=== PATIENT | female | born 1975 | race African-American/Black ===

== ENCOUNTER 2017-01-07 11:20 | Emergency (ER) | payer MEDICAID ==
[~2017-01-07] VITALS: Ht 162.6 cm; Wt 75.0 kg
[2017-01-07] MEDS ORDERED: IPRATROPIUM/ALBUTEROL 0.5-3(2.5)MG/3ML NEB HHN ONE (12:15)
[2017-01-07 12:55] LABS: BASOPHILS % 0.5 % (0.0-2.0); EOSINOPHILS % 2.4 % (0.0-5.0); HEMATOCRIT. 44.9 % (36.0-48.0); HEMOGLOBIN. 15.2 g/dL (12.0-16.0); LYMPHOCYTES % 14.8 % (20.0-50.0); MEAN CORPUSCULAR HEMOGLOBIN 33.2 pg (28.0-32.0); MEAN CORPUSCULAR VOLUME 98.2 fL (81.0-99.0); MEAN PLATELET VOLUME 8.6 fl (7.4-10.4); MONOCYTES % 9.1 % (2.0-8.0); NEUTROPHILS % 73.2 % (40.0-76.0); PLATELET 233 x1000/uL (130-400); RED BLOOD CELL COUNT 4.57 mill/uL (4.2-5.4); RED CELL DISTRIBUTION WIDTH 14.4 % (11.6-14.6)
[2017-01-07 13:01] LABS: CARBON DIOXIDE 29 mEq/L (21-32); CHLORIDE 108 mEq/L (98-107)
[2017-01-07 14:27] LABS: *AMPHETAMINES SCREEN URINE NEGATIVE (NEGATIVE); *BARBITURATES SCREEN URINE NEGATIVE (NEGATIVE); *BENZODIAZEPINES SCREEN URINE NEGATIVE (NEGATIVE); CANNABINOID URINE SCREEN NEGATIVE (NEGATIVE); METHADONE URINE SCREEN NEGATIVE (NEGATIVE); OPIATES URINE SCREEN NEGATIVE (NEGATIVE); PHENCYCLIDINE URINE SCREEN NEGATIVE (NEGATIVE)
[2017-01-07 14:28] LABS: CLARITY URINE CLOUDY (CLEAR); COLOR URINE YELLOW (YELLOW); GLUCOSE URINE NEGATIVE (NEGATIVE); KETONES URINE NEGATIVE (NEGATIVE); LEUKOCYTE ESTERASE URINE 3+ (NEGATIVE); NITRITE URINE NEGATIVE (NEGATIVE); OCCULT BLOOD URINE 2+ (NEGATIVE); PH URINE 7.5 (4.5-8.0); PROTEIN URINE TRACE (NEGATIVE); SPECIFIC GRAVITY URINE 1.009 (1.005-1.030)
[2017-01-07 14:29] LABS: *COCAINE SCREEN URINE PRESUMTIVE POSITIVE (NEGATIVE)
[2017-01-07 14:59] VITALS: BP 114/84
[2017-01-07] MEDS ORDERED: SULFAMETHOXAZOLE/TRIMETHOPRIM 800/160MG TABLET PO ONE (15:30)
== END 2017-01-07 15:49 | disposition home or self-care (01) ==
LOC: ER 12:30
DX: J45.901 Unspecified asthma with (acute) exacerbation (principal); N39.0 Urinary tract infection, site not specified; E87.6 Hypokalemia; E88.09 Other disorders of plasma-protein metabolism, not elsewhere classified; E46 Unspecified protein-calorie malnutrition; F14.10 Cocaine abuse, uncomplicated; N17.0 Acute kidney failure with tubular necrosis; R73.9 Hyperglycemia, unspecified; R80.9 Proteinuria, unspecified; R82.71 Bacteriuria; E87.8 Other disorders of electrolyte and fluid balance, not elsewhere classified; E83.51 Hypocalcemia; E86.0 Dehydration; J98.11 Atelectasis; Z88.0 Allergy status to penicillin
CPT/HCPCS: 36415; 71010; 80053; 80305; 81001; 85025; 94640; 99285; Z7610; J7620

== ENCOUNTER 2020-04-09 22:03 | Inpatient (IN) | payer MEDICAID, OTHER ==
[~2020-04-09] VITALS: Ht 162.6 cm; Wt 71.7 kg
[2020-04-09] MEDS ORDERED: SODIUM CHLORIDE 0.9% 1,000 ML IV ONE (22:33)
[2020-04-09] MEDS ORDERED: FOLIC ACID 1 MG, THIAMINE HCL 100 MG, MVI, ADULT NO.1 10 ML in DEXTROSE 5% WATER 1,000 ML IV ONE ×4 (22:45)
[2020-04-09] MEDS ORDERED: ASPIRIN 81MG TABLET PO ONE (22:45)
[2020-04-09 23:06] LABS: BASOPHILS % 0.7 % (0.0-2.0); HEMATOCRIT. 51.6 % (36.0-48.0); LYMPHOCYTES % 14.9 % (20.0-50.0); MEAN CORPUSCULAR HEMOGLOBIN 35.3 pg (28.0-32.0); MEAN CORPUSCULAR VOLUME 107.2 fL (81.0-99.0); MEAN PLATELET VOLUME 8.6 fl (7.4-10.4); MONOCYTES % 8.3 % (2.0-8.0); NEUTROPHILS % 76.1 % (40.0-76.0); PLATELET 141 x1000/uL (130-400); RED BLOOD CELL COUNT 4.81 mill/uL (4.2-5.4); RED CELL DISTRIBUTION WIDTH 13.9 % (11.6-14.6)
[2020-04-09 23:11] LABS: CHLORIDE 95 mEq/L (98-107)
[2020-04-09 23:15] LABS: ETHANOL BLOOD 22 mg/dL
[2020-04-09 23:25] LABS: T4 FREE 1.16 ng/dL (0.76-1.46)
[2020-04-09 23:27] LABS: PLATELET ESTIMATE NORMAL
[2020-04-09] MEDS ORDERED: DEXTROSE 50% WATER 50ML SYRINGE IV ONE (23:45)
[2020-04-10] MEDS ORDERED: FUROSEMIDE 100MG/10ML VIAL IV NR (00:33)
[2020-04-10] MEDS ORDERED: CALCIUM CHLORIDE 1GM/10ML SYR IV NR (00:45)
[2020-04-10] MEDS ORDERED: LORAZEPAM 2MG/ML CPJ IV ONE (00:45)
[2020-04-10] MEDS ORDERED: SODIUM BICARBONATE 8.4% 1 MEQ/ML 50ML SYR IV NR (00:45)
[2020-04-10] MEDS ORDERED: DILTIAZEM HCL 5MG/ML 5ML VIAL IV ONE (01:15)
[2020-04-10] MEDS ORDERED: SODIUM CHLORIDE 0.9% 1000ML BAG (SEPSIS BOLUS) IV NR (01:45)
[2020-04-10 02:27] LABS: CLARITY URINE TURBID (CLEAR); COLOR URINE ORANGE (YELLOW); KETONES URINE NEGATIVE (NEGATIVE); LEUKOCYTE ESTERASE URINE 3+ (NEGATIVE); NITRITE URINE NEGATIVE (NEGATIVE); OCCULT BLOOD URINE 3+ (NEGATIVE); PH URINE 5.5 (4.5-8.0); PROTEIN URINE 2+ (NEGATIVE); SPECIFIC GRAVITY URINE 1.013 (1.005-1.030)
[2020-04-10 02:43] LABS: *AMPHETAMINES SCREEN URINE NEGATIVE (NEGATIVE)
[2020-04-10 02:44] LABS: *BARBITURATES SCREEN URINE NEGATIVE (NEGATIVE); *BENZODIAZEPINES SCREEN URINE NEGATIVE (NEGATIVE); METHADONE URINE SCREEN NEGATIVE (NEGATIVE); OPIATES URINE SCREEN NEGATIVE (NEGATIVE)
[2020-04-10 02:45] LABS: CANNABINOID URINE SCREEN NEGATIVE (NEGATIVE); PHENCYCLIDINE URINE SCREEN NEGATIVE (NEGATIVE)
[2020-04-10 02:48] LABS: *COCAINE SCREEN URINE PRESUMTIVE POSITIVE (NEGATIVE)
[2020-04-10 08:00] VITALS: BP 124/85
[2020-04-10] MEDS ORDERED: DEXTROSE 50% WATER 50ML SYRINGE IV PRN ×2 (09:00→09:15)
[2020-04-10] MEDS ORDERED: ALBUTEROL (0.083%) 2.5MG/3ML NEB HHN SCH (09:15)
[2020-04-10 12:00] VITALS: BP 130/90
[2020-04-10] MEDS: BLOOD SUGAR DIAGNOSTIC STRIP TEST SCH ×3 (12:36→21:14)
[2020-04-10] MEDS ORDERED: DILTIAZEM HCL 5MG/ML 5ML VIAL IV NR ×2 (12:45→15:30)
[2020-04-10] MEDS: INSULIN LISPRO 100 UNITS/ML SUBCUT SCH ×3 (13:04→21:38)
[2020-04-10 13:16] VITALS: BP 124/85
[2020-04-10 16:00] VITALS: BP 112/82
[2020-04-10] MEDS ORDERED: CEFTRIAXONE 1 G PREMIX 50 ML IV SCH (17:30)
[2020-04-10] MEDS: DILTIAZEM HCL 60MG TABLET PO SCH ×2 (18:06→23:49)
[2020-04-10 20:00] VITALS: BP 123/85
[2020-04-10] MEDS: CEFTRIAXONE 1,000 MG in DEXTROSE 5% WATER 50 ML IV SCH (21:13)
[2020-04-10] MEDS: ENOXAPARIN 40MG/0.4ML SYR SUBCUT SCH (21:14)
[2020-04-11] VITALS: BP 121/76
[2020-04-11 04:00] VITALS: BP 122/90
[2020-04-11] MEDS: DILTIAZEM HCL 60MG TABLET PO SCH (05:28)
[2020-04-11] MEDS: BLOOD SUGAR DIAGNOSTIC STRIP TEST SCH ×4 (05:28→20:12)
[2020-04-11] MEDS: INSULIN LISPRO 100 UNITS/ML SUBCUT SCH ×4 (07:13→20:12)
[2020-04-11 08:00] VITALS: BP 122/85
[2020-04-11 10:40] LABS: BASOPHILS % 0.7 % (0.0-2.0); EOSINOPHILS % 0.7 % (0.0-5.0); HEMATOCRIT. 42.8 % (36.0-48.0); HEMOGLOBIN. 14.4 g/dL (12.0-16.0); LYMPHOCYTES % 11.7 % (20.0-50.0); MEAN CORPUSCULAR HEMOGLOBIN 35.5 pg (28.0-32.0); MEAN CORPUSCULAR VOLUME 105.3 fL (81.0-99.0); MONOCYTES % 13.6 % (2.0-8.0); NEUTROPHILS % 73.3 % (40.0-76.0); PLATELET 133 x1000/uL (130-400); RED BLOOD CELL COUNT 4.06 mill/uL (4.2-5.4); RED CELL DISTRIBUTION WIDTH 13.5 % (11.6-14.6)
[2020-04-11 10:48] LABS: CHLORIDE 101 mEq/L (98-107)
[2020-04-11 10:58] LABS: CREATINE KINASE 217 IU/L (26-192)
[2020-04-11 11:07] LABS: CREATINE KINASE MB FRACTION 4.9 ng/mL (0.5-3.6)
[2020-04-11 12:00] VITALS: BP 125/96
[2020-04-11] MEDS ORDERED: MAGNESIUM 4 G PREMIX 100 ML IV ONE (12:00)
[2020-04-11] MEDS ORDERED: POTASSIUM CHLORIDE 20MEQ TABLET SR PO ONE (12:00)
[2020-04-11] MEDS: DILTIAZEM HCL 30MG TABLET PO SCH ×2 (12:06→17:05)
[2020-04-11 12:19] LABS: HEPATITIS B SURFACE ANTIGEN NEGATIVE
[2020-04-11 12:47] LABS: HEPATITIS A AB IGM NEGATIVE (NEGATIVE)
[2020-04-11 16:00] VITALS: BP 111/73
[2020-04-11 20:00] VITALS: BP 131/91
[2020-04-11] MEDS: ENOXAPARIN 40MG/0.4ML SYR SUBCUT SCH (20:11)
[2020-04-11] MEDS: CEFTRIAXONE 1,000 MG in DEXTROSE 5% WATER 50 ML IV SCH (20:11)
[2020-04-12] VITALS: BP 116/90
[2020-04-12] MEDS: DILTIAZEM HCL 30MG TABLET PO SCH ×3 (00:07→12:24)
[2020-04-12 04:00] VITALS: BP 121/71
[2020-04-12 06:46] LABS: BASOPHILS % 0.5 % (0.0-2.0); EOSINOPHILS % 0.6 % (0.0-5.0); HEMATOCRIT. 43.9 % (36.0-48.0); HEMOGLOBIN. 14.6 g/dL (12.0-16.0); LYMPHOCYTES % 19.9 % (20.0-50.0); MEAN CORPUSCULAR HEMOGLOBIN 35.3 pg (28.0-32.0); MEAN CORPUSCULAR VOLUME 105.9 fL (81.0-99.0); MEAN PLATELET VOLUME 8.6 fl (7.4-10.4); MONOCYTES % 13.9 % (2.0-8.0); NEUTROPHILS % 65.1 % (40.0-76.0); PLATELET 119 x1000/uL (130-400); RED BLOOD CELL COUNT 4.14 mill/uL (4.2-5.4); RED CELL DISTRIBUTION WIDTH 13.8 % (11.6-14.6)
[2020-04-12] MEDS: BLOOD SUGAR DIAGNOSTIC STRIP TEST SCH ×2 (06:55→12:04)
[2020-04-12 07:10] LABS: CHLORIDE 101 mEq/L (98-107)
[2020-04-12 07:29] LABS: CREATINE KINASE 145 IU/L (26-192)
[2020-04-12 07:32] LABS: CREATINE KINASE MB FRACTION 2.6 ng/mL (0.5-3.6)
[2020-04-12] MEDS: INSULIN LISPRO 100 UNITS/ML SUBCUT SCH ×2 (07:50→12:25)
[2020-04-12 08:00] VITALS: BP 120/78
[2020-04-12] MEDS ORDERED: LEVO500T2 MT (10:45)
[2020-04-12 11:05] VITALS: BP 128/70
[2020-04-12 12:00] VITALS: BP 114/85
== END 2020-04-12 14:37 | disposition home or self-care (01) | DRG 720 ==
LOC: ER 22:03 → 7WST 04-10 01:15 → ENRESERV 04-10 07:21 → 6WST 04-11 17:17
PROVIDERS: ADMIT Internal Medicine; ATTEND Internal Medicine
DX: A41.9 Sepsis, unspecified organism (principal); E16.2 Hypoglycemia, unspecified; E44.0 Moderate protein-calorie malnutrition; E87.1 Hypo-osmolality and hyponatremia; E87.5 Hyperkalemia; E87.8 Other disorders of electrolyte and fluid balance, not elsewhere classified; F10.10 Alcohol abuse, uncomplicated; F14.10 Cocaine abuse, uncomplicated; F17.210 Nicotine dependence, cigarettes, uncomplicated; I47.1 Supraventricular tachycardia; J45.909 Unspecified asthma, uncomplicated; N39.0 Urinary tract infection, site not specified; Z20.828 Contact with and (suspected) exposure to other viral communicable diseases; R74.0 Nonspecific elevation of levels of transaminase and lactic acid dehydrogenase [LDH]; Z59.0 Homelessness; Z79.899 Other long term (current) drug therapy; Z88.0 Allergy status to penicillin; Z91.09 Other allergy status, other than to drugs and biological substances; Z68.27 Body mass index [BMI] 27.0-27.9, adult; I50.23 Acute on chronic systolic (congestive) heart failure; N17.0 Acute kidney failure with tubular necrosis
CPT/HCPCS: 36415; 71045; 76700; 80053; 80305; 80320; 81003; 82550; 82553; 82962; 83036; 83735; 83880; 84439; 84443; 84484; 85025; 86705; 86709; 86803; 87340; 87635; 93005; 93306; 99291; J0696; J1650; J1815; J1940; J2060; J3411; J3475; J3490; J7030; J7060; J7070; G0480

== ENCOUNTER 2021-01-13 10:05 | Inpatient (IN) | payer MEDICAID, OTHER ==
[~2021-01-13] VITALS: Ht 157.5 cm; Wt 83.9 kg
[~2021-01-13 10:05] MED LIST: LEVO500T2 MT
[2021-01-13] MEDS ORDERED: FUROSEMIDE 40MG/4ML VIAL IV ONE (10:45)
[2021-01-13] MEDS ORDERED: NITROGLYCERIN OINT 1GM/INCH UDPKT TD ONE (10:45)
[2021-01-13 10:55] LABS: HEMATOCRIT. 43.4 % (36.0-48.0); MEAN CORPUSCULAR HEMOGLOBIN 36.5 pg (28.0-32.0); MEAN CORPUSCULAR VOLUME 105.6 fL (81.0-99.0); PLATELET 108 x1000/uL (130-400); RED BLOOD CELL COUNT 4.11 mill/uL (4.2-5.4); RED CELL DISTRIBUTION WIDTH 18.9 % (11.6-14.6)
[2021-01-13 11:01] LABS: CHLORIDE 103 mEq/L (98-107)
[2021-01-13 11:04] LABS: INR 1.8; PROTHROMBIN TIME 18.6 sec (9.6-11.0)
[2021-01-13 11:41] LABS: NUCLEATED RED BLOOD CELLS 3 /100 WBC; PLATELET ESTIMATE DECREASED
[2021-01-13] MEDS ORDERED: VANCOMYCIN 1 G PREMIX 200 ML IV NR (12:00)
[2021-01-13] MEDS ORDERED: PIPERACILLIN/TAZ 3.375G PREMIX 50 ML IV NR (12:00)
[2021-01-13 12:12] LABS: CLARITY URINE TURBID (CLEAR); COLOR URINE DARK YELLOW (YELLOW); KETONES URINE NEGATIVE (NEGATIVE); LEUKOCYTE ESTERASE URINE 3+ (NEGATIVE); NITRITE URINE NEGATIVE (NEGATIVE); OCCULT BLOOD URINE 3+ (NEGATIVE); PROTEIN URINE 2+ (NEGATIVE); SPECIFIC GRAVITY URINE 1.014 (1.005-1.030)
[2021-01-13] MEDS ORDERED: ONDANSETRON HCL 4MG/2ML INJ IV PRN (13:00)
[2021-01-13] MEDS ORDERED: FUROSEMIDE 40MG/4ML VIAL IVP SCH (13:17)
[2021-01-13] MEDS ORDERED: LEVOFLOXACIN 250MG PREMIX 50 ML IV SCH (13:30)
[2021-01-13 13:45] LABS: *AMPHETAMINES SCREEN URINE NEGATIVE (NEGATIVE); *BARBITURATES SCREEN URINE NEGATIVE (NEGATIVE)
[2021-01-13 13:46] LABS: CANNABINOID URINE SCREEN NEGATIVE (NEGATIVE); METHADONE URINE SCREEN NEGATIVE (NEGATIVE); OPIATES URINE SCREEN NEGATIVE (NEGATIVE); PHENCYCLIDINE URINE SCREEN NEGATIVE (NEGATIVE)
[2021-01-13 13:48] LABS: *BENZODIAZEPINES SCREEN URINE NEGATIVE (NEGATIVE)
[2021-01-13 13:50] LABS: *COCAINE SCREEN URINE PRESUMTIVE POSITIVE (NEGATIVE)
[2021-01-13] MEDS ORDERED: LACTULOSE 20G/30ML UDC PO NR (16:30)
[2021-01-13] MEDS: DOCUSATE SODIUM 100MG CAPSULE PO SCH (16:52)
[2021-01-13] MEDS: ACETAMINOPHEN 325MG TABLET PO PRN (16:52)
[2021-01-13] MEDS: VANCOMYCIN 750 MG PREMIX 150 ML IV SCH ×2 (16:56→16:58)
[2021-01-13] MEDS: IPRATROPIUM/ALBUTEROL 0.5-3(2.5)MG/3ML NEB HHN SCH (20:48)
[2021-01-13 21:49] VITALS: BP 105/79
[2021-01-13 22:00] VITALS: BP 105/79
[2021-01-13] MEDS ORDERED: CARVEDILOL 6.25 MG TABLET PO NR (23:42)
[2021-01-14] VITALS (7 sets, daily range): BP systolic 83–108; BP diastolic 47–91
[2021-01-14] MEDS ORDERED: FUROSEMIDE 40MG/4ML VIAL IVP SCH (03:00)
[2021-01-14] MEDS: IPRATROPIUM/ALBUTEROL 0.5-3(2.5)MG/3ML NEB HHN SCH ×6 (04:52→20:50)
[2021-01-14 07:04] LABS: HEMATOCRIT. 42.5 % (36.0-48.0); HEMOGLOBIN. 14.3 g/dL (12.0-16.0); MEAN CORPUSCULAR HEMOGLOBIN 36.1 pg (28.0-32.0); MEAN CORPUSCULAR VOLUME 107.2 fL (81.0-99.0); MEAN PLATELET VOLUME 8.4 fl (7.4-10.4); PLATELET 96 x1000/uL (130-400); RED BLOOD CELL COUNT 3.96 mill/uL (4.2-5.4); RED CELL DISTRIBUTION WIDTH 19.1 % (11.6-14.6)
[2021-01-14] MEDS: ACETAMINOPHEN 325MG TABLET PO PRN ×2 (07:47→20:44)
[2021-01-14] MEDS: DOCUSATE SODIUM 100MG CAPSULE PO SCH ×2 (08:34→17:00)
[2021-01-14] MEDS ORDERED: CARVEDILOL 6.25 MG TABLET PO SCH (09:00)
[2021-01-14] MEDS ORDERED: MIDODRINE HCL 5MG TABLET PO SCH (11:00)
[2021-01-14] MEDS: METHYLPREDNISOLONE SOD SUCC 40 MG/ML VIAL IV SCH ×2 (13:38→20:44)
[2021-01-14] MEDS: MIDODRINE HCL 5MG TABLET PO SCH ×2 (13:57→20:44)
[2021-01-14] MEDS ORDERED: VANCOMYCIN 1500MG in DEXTROSE 5% WATER 250ML IV NR (14:00)
[2021-01-14] MEDS: LEVOFLOXACIN 250MG PREMIX 50 ML IV SCH (17:36)
[2021-01-14 23:00] LABS: PLATELET ESTIMATE DECREASED
[2021-01-15] VITALS (9 sets, daily range): BP systolic 98–142; BP diastolic 69–99
[2021-01-15] MEDS: IPRATROPIUM/ALBUTEROL 0.5-3(2.5)MG/3ML NEB HHN SCH ×5 (00:09→17:21)
[2021-01-15] MEDS: MIDODRINE HCL 5MG TABLET PO SCH ×3 (05:12→21:06)
[2021-01-15] MEDS: METHYLPREDNISOLONE SOD SUCC 40 MG/ML VIAL IV SCH ×3 (05:12→21:05)
[2021-01-15] MEDS: ACETAMINOPHEN 325MG TABLET PO PRN ×3 (05:12→21:05)
[2021-01-15 07:23] LABS: HEMOGLOBIN. 13.2 g/dL (12.0-16.0); MEAN CORPUSCULAR HEMOGLOBIN 35.2 pg (28.0-32.0); MEAN CORPUSCULAR VOLUME 104.2 fL (81.0-99.0); MEAN PLATELET VOLUME 9.2 fl (7.4-10.4); PLATELET 109 x1000/uL (130-400); RED BLOOD CELL COUNT 3.75 mill/uL (4.2-5.4); RED CELL DISTRIBUTION WIDTH 18.7 % (11.6-14.6)
[2021-01-15] MEDS: DOCUSATE SODIUM 100MG CAPSULE PO SCH ×2 (09:37→16:16)
[2021-01-15 14:09] LABS: NUCLEATED RED BLOOD CELLS 2 /100 WBC; PLATELET ESTIMATE SLIGHTLY DECREASED
[2021-01-15] MEDS ORDERED: LEVOFLOXACIN 500MG PREMIX 100 ML IV NR (15:00)
[2021-01-15] MEDS: LEVOFLOXACIN 250MG PREMIX 50 ML IV SCH (16:16)
[2021-01-15] MEDS ORDERED: DILTIAZEM HCL 5MG/ML 5ML VIAL IV NR (20:09)
[2021-01-15] MEDS: IPRATROPIUM BROMIDE (0.02%) 0.5MG/2.5ML NEB HHN SCH (21:10)
[2021-01-15] MEDS: DILTIAZEM HCL 30MG TABLET PO SCH (21:58)
[2021-01-16] VITALS (7 sets, daily range): BP systolic 107–146; BP diastolic 80–99
[2021-01-16] MEDS ORDERED: CEFTRIAXONE 1 G PREMIX 50 ML IV SCH
[2021-01-16] MEDS: IPRATROPIUM BROMIDE (0.02%) 0.5MG/2.5ML NEB HHN SCH ×5 (00:31→21:16)
[2021-01-16] MEDS ORDERED: METOPROLOL TARTRATE 5MG/5ML VIAL IV NR (01:00)
[2021-01-16] MEDS: CEFTRIAXONE 1,000 MG in DEXTROSE 5% WATER 50 ML IV SCH (01:02)
[2021-01-16] MEDS: MIDODRINE HCL 5MG TABLET PO SCH ×3 (05:22→21:50)
[2021-01-16] MEDS: METHYLPREDNISOLONE SOD SUCC 40 MG/ML VIAL IV SCH ×3 (05:22→21:50)
[2021-01-16] MEDS: DILTIAZEM HCL 30MG TABLET PO SCH ×2 (05:27→13:00)
[2021-01-16 06:57] LABS: HEMATOCRIT. 39.6 % (36.0-48.0); HEMOGLOBIN. 13.5 g/dL (12.0-16.0); MEAN CORPUSCULAR HEMOGLOBIN 35.4 pg (28.0-32.0); MEAN CORPUSCULAR VOLUME 103.7 fL (81.0-99.0); MEAN PLATELET VOLUME 9.1 fl (7.4-10.4); PLATELET 116 x1000/uL (130-400); RED BLOOD CELL COUNT 3.82 mill/uL (4.2-5.4); RED CELL DISTRIBUTION WIDTH 18.6 % (11.6-14.6)
[2021-01-16] MEDS: IPRATROPIUM/ALBUTEROL 0.5-3(2.5)MG/3ML NEB HHN SCH (08:00)
[2021-01-16] MEDS: DOCUSATE SODIUM 100MG CAPSULE PO SCH ×2 (08:12→16:01)
[2021-01-16] MEDS: ACETAMINOPHEN 325MG TABLET PO PRN ×3 (08:13→21:50)
[2021-01-16 12:56] LABS: NUCLEATED RED BLOOD CELLS 4 /100 WBC
[2021-01-16 12:57] LABS: PLATELET ESTIMATE DECREASED
[2021-01-16] MEDS: FAMOTIDINE 20MG TABLET PO SCH (20:12)
[2021-01-16] MEDS: METOPROLOL TARTRATE 25MG TABLET PO SCH (20:12)
[2021-01-17] VITALS: BP 127/91
[2021-01-17] MEDS: IPRATROPIUM BROMIDE (0.02%) 0.5MG/2.5ML NEB HHN SCH ×2 (00:50→04:19)
[2021-01-17] MEDS: CEFTRIAXONE 1,000 MG in DEXTROSE 5% WATER 50 ML IV SCH (01:59)
[2021-01-17 04:00] VITALS: BP 142/97
[2021-01-17] MEDS: MIDODRINE HCL 5MG TABLET PO SCH ×3 (05:07→21:01)
[2021-01-17] MEDS: METHYLPREDNISOLONE SOD SUCC 40 MG/ML VIAL IV SCH ×3 (05:07→21:02)
[2021-01-17 08:00] VITALS: BP 148/96
[2021-01-17] MEDS: IPRATROPIUM/ALBUTEROL 0.5-3(2.5)MG/3ML NEB HHN SCH ×4 (08:06→20:46)
[2021-01-17] MEDS: DOCUSATE SODIUM 100MG CAPSULE PO SCH ×2 (09:19→17:00)
[2021-01-17] MEDS: METOPROLOL TARTRATE 25MG TABLET PO SCH ×2 (09:19→21:02)
[2021-01-17] MEDS ORDERED: LEVOFLOXACIN 500MG PREMIX 100 ML IV SCH (11:00)
[2021-01-17] MEDS ORDERED: FURO-152 MT (11:42)
[2021-01-17] MEDS ORDERED: P20 MT (11:42)
[2021-01-17] MEDS ORDERED: LOSA25TA26 MT (11:42)
[2021-01-17] MEDS ORDERED: CARV12.545 MT (11:42)
[2021-01-17 12:00] VITALS: BP 141/110
[2021-01-17] MEDS: VANCOMYCIN 750 MG PREMIX 150 ML IV SCH (12:27)
[2021-01-17] MEDS: ACETAMINOPHEN 325MG TABLET PO PRN ×2 (12:27→19:04)
[2021-01-17] MEDS ORDERED: FLUT1DIS3 INH (14:37)
[2021-01-17] MEDS ORDERED: ALBU18HF2 IH (14:37)
[2021-01-17 16:00] VITALS: BP 135/106
[2021-01-17 20:00] VITALS: BP 131/87
[2021-01-17] MEDS: FAMOTIDINE 20MG TABLET PO SCH (21:02)
[2021-01-18] MEDS ORDERED: ZOLPIDEM TARTRATE 5MG TABLET PO PRN (00:30)
[2021-01-18 00:32] VITALS: BP 139/109
[2021-01-18] MEDS: IPRATROPIUM/ALBUTEROL 0.5-3(2.5)MG/3ML NEB HHN SCH (00:37)
[2021-01-18] MEDS: CEFTRIAXONE 1,000 MG in DEXTROSE 5% WATER 50 ML IV SCH (00:51)
[2021-01-18] MEDS: IPRATROPIUM BROMIDE (0.02%) 0.5MG/2.5ML NEB HHN SCH ×3 (03:51→12:14)
[2021-01-18 04:00] VITALS: BP 154/108
[2021-01-18] MEDS: METHYLPREDNISOLONE SOD SUCC 40 MG/ML VIAL IV SCH ×2 (06:31→14:00)
[2021-01-18] MEDS: MIDODRINE HCL 5MG TABLET PO SCH ×2 (06:31→14:00)
[2021-01-18 07:54] VITALS: BP 138/114
[2021-01-18] MEDS: METOPROLOL TARTRATE 25MG TABLET PO SCH (09:50)
[2021-01-18] MEDS: DOCUSATE SODIUM 100MG CAPSULE PO SCH (09:50)
[2021-01-18 11:43] VITALS: BP 142/65
[2021-01-18] MEDS: VANCOMYCIN 750 MG PREMIX 150 ML IV SCH (12:08)
== END 2021-01-18 15:05 | disposition home or self-care (01) | DRG 720 ==
LOC: ER 10:05 → 7WST 12:45 → ENRESERV 20:36 → 6WST 23:15
PROVIDERS: ADMIT Internal Medicine; ATTEND Internal Medicine
DX: A41.50 Gram-negative sepsis, unspecified (principal); N17.0 Acute kidney failure with tubular necrosis; I50.23 Acute on chronic systolic (congestive) heart failure; E44.0 Moderate protein-calorie malnutrition; D69.6 Thrombocytopenia, unspecified; I36.1 Nonrheumatic tricuspid (valve) insufficiency; E66.01 Morbid (severe) obesity due to excess calories; I42.9 Cardiomyopathy, unspecified; N39.0 Urinary tract infection, site not specified; J45.909 Unspecified asthma, uncomplicated; F17.210 Nicotine dependence, cigarettes, uncomplicated; R65.20 Severe sepsis without septic shock; Z20.822 Contact with and (suspected) exposure to COVID-19; F14.10 Cocaine abuse, uncomplicated; I11.0 Hypertensive heart disease with heart failure; F10.10 Alcohol abuse, uncomplicated; Y90.9 Presence of alcohol in blood, level not specified; Z88.0 Allergy status to penicillin; Z79.2 Long term (current) use of antibiotics; Z79.899 Other long term (current) drug therapy; Z68.33 Body mass index [BMI] 33.0-33.9, adult; Z71.51 Drug abuse counseling and surveillance of drug abuser; Z71.6 Tobacco abuse counseling; Z59.0 Homelessness
CPT/HCPCS: 36415; 71045; 80048; 80053; 80202; 80305; 81003; 83605; 83880; 84145; 84484; 85025; 85651; 93005; 93306; 93970; 94640; 97162; 99291; C1893; J0696; J1940; J1956; J2543; J2920; J3370; J3490; J7060; U0003; U0005